=== PATIENT | female | born 1995 | race Caucasian/White ===

== ENCOUNTER → 2017-06-07 | Emergency (ER) | payer BC ==
[~2017-06-07] VITALS: Ht 160 cm; Wt 52.3 kg
[~2017-06-07] MED LIST: ALBUTEROL0.83 MG/ML IH; MAG-G500 MG PO; NAPROXEN 3375 MG/TAB PO; PREVACID 30MG30 M1 PO; PULMICORT0.5 MG/2 M IH; SINGULAIR 110 MG/TAB PO; ZANTAC 150MG T150 MG PO
[2017-06-07 11:37] VITALS: PULSE 70; TEMP 98
[2017-06-07 14:10] VITALS: BP 109/78
== END ==
LOC: COL.ER 11:33
DX: R09.1 Pleurisy (principal); K21.9 Gastro-esophageal reflux disease without esophagitis; Z79.52 Long term (current) use of systemic steroids